=== PATIENT | female | born 1985 | race Caucasian/White ===

== ENCOUNTER 2017-05-21 | Emergency (ER) | payer OTHER, SELFPAY ==
--- NOTE | 2017-05-21 19:55 | EDPHYS ---
Physician Documentation [facility] Name: Julienne Lopez Age: 31 yrs Sex: Female : 1985 Arrival Date: 05/21/2017 Time: 19:34 Bed 18 Private MD: ED Physician Arben Morales HPI: 05/21 20:00 This 31 yrs old Female presents to ER via Ambulatory with complaints of tw4 Abdominal Pain. 20:00 The patient presents with abdominal pain in the periumbilical area. Onset: The tw4 symptoms/episode began/occurred 1 week(s) ago. The symptoms do not radiate. Associated signs and symptoms: none. The symptoms are described as sharp. Modifying factors: The symptoms are alleviated by supine position, the symptoms are aggravated by pressure, sitting up, picking up objects. Severity of pain: At its worst the pain was moderate in the emergency department the pain has improved. The patient has not experienced similar symptoms in the past. 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 - Social history:: Smoking status: Patient/guardian denies using tobacco, Patient/guardian denies using alcohol. ROS: 20:00 Constitutional: Negative for fever, chills, and weight loss, Cardiovascular: Negative tw4 for chest pain, palpitations, and edema, Respiratory: Negative for shortness of breath, cough, wheezing, and pleuritic chest pain, Back: Negative for injury and pain, MS/Extremity: Negative for injury and deformity, Skin: Negative for injury, rash, and discoloration. 20:00 Abdomen/GI: Positive for abdominal pain, Negative for nausea and vomiting, nausea, vomiting, and diarrhea, nausea, vomiting, diarrhea, constipation, abdominal cramps, abdominal distension, anorexia, dysphagia, hematemesis, black/tarry stool, rectal pain, rectal bleeding, bowel incontinence, flatulence. Exam: 20:00 Constitutional: This is a well developed, well nourished patient who is awake, alert, tw4 and in no acute distress. Head/Face: Normocephalic, atraumatic. Chest/axilla: Normal chest wall appearance and motion. Nontender with no deformity. No lesions are appreciated. Cardiovascular: Regular rate and rhythm with a normal S1 and S2. No gallops, murmurs, or rubs. Normal PMI, no JVD. No pulse deficits. Respiratory: Lungs have equal breath sounds bilaterally, clear to auscultation and percussion. No rales, rhonchi or wheezes noted. No increased work of breathing, no retractions or nasal flaring. 20:00 Abdomen/GI: Inspection: abdomen appears normal, Bowel sounds: normal, Hernia: noted in the umbilical area, incarceration, is not appreciated, tenderness, is not appreciated. Vital Signs: 19:38 BP 138 / 87; Pulse 82; Resp 18; Temp 97.6(O); Pulse Ox 100% on R/A; Weight 123.38 kg fc (R); Height 5 ft. 10 in. (177.80 cm) (R); Pain 5/10; 19:38 Body Mass Index 39.03 (123.38 kg, 177.80 cm) fc MDM: 19:48 Patient medically screened. tw4 20:00 Differential diagnosis: bowel obstruction, Mesenteric ischemia or infarction, tw4 non-specific abd pain, pancreatitis, Peritonitis. Data reviewed: vital signs, nurses notes. Counseling: I had a detailed discussion with the patient and/or guardian regarding: the historical points, exam findings, and any diagnostic results supporting the discharge/admit diagnosis. Special discussion: Based on the patient's Hx, exam, and Dx evaluation, there is no indication for emergent surgery or inpatient Tx. It is understood by the patient/guardian that if the Sx's persist or worsen they need to return immediately for re-evaluation. I discussed with the patient/guardian in detail that at this point there is no indication for admission to the hospital. It is understood, however, that if the symptoms persist or worsen the patient needs to return immediately for re-evaluation. Administered Medications: No medications were administered Disposition: 05/21/17 19:54 Discharged to Home. Impression: Umbilical hernia without obstruction or gangrene. - Condition is Stable. - Discharge Instructions: Hernia, [id number], Hernia Repair, Care After, [id number]. - Medication Reconciliation Form, Thank You Letter, Antibiotic Education, Prescription Opioid Use form. - Follow up: Private Physician; When: As needed; Reason: Recheck today's complaints, Continuance of care, Re-evaluation by your physician. Follow up: Jaime Bear MD; When: As needed; Reason: Recheck today's complaints, Continuance of care, Re-evaluation by your physician. - Problem is new. - Symptoms are unchanged. Signatures: Nia Lane RN RN fc Ortiz, Alex, RN RN ao Wadley, Terrence, MD MD tw4
--- NOTE | 2017-05-21 19:55 | ER ---
Nurse's Notes [facility] Name: Julienne Lopez Age: 31 yrs Sex: Female : 1985 Arrival Date: 05/21/2017 Time: 19:34 Bed 18 Private MD: Diagnosis: Umbilical hernia without obstruction or gangrene Presentation: 05/21 19:35 Presenting complaint: Patient states: that she is having pain to her hernia around her fc "belly button". Started yesterday, worse today. Denies any nausea or vomiting. Transition of care: patient was not received from another setting of care. Onset of symptoms was May 20, 2017. Care prior to arrival: None. 19:35 Method Of Arrival: Ambulatory fc 19:35 Acuity: LAMBERTO 3 Triage Assessment: 19:40 General: Appears comfortable, obese, Behavior is calm, cooperative, appropriate for fc age. Pain: Complains of pain in abdomen. EENT: No deficits noted. Neuro: Level of Consciousness is awake, alert, obeys commands, Oriented to person, place, time, situation. Cardiovascular: No deficits noted. Respiratory: No deficits noted. GI: Abdomen is obese, Bowel sounds present X 4 quads. Abd is soft X 4 quads Abdomen is tender to palpation in umbilical area Reports pain to belly button Patient currently denies diarrhea, nausea, vomiting. : No deficits noted. Derm: Skin is pink, warm \\T\\ dry. Musculoskeletal: Circulation, motion, and sensation intact. Capillary refill < 3 seconds, Range of motion: intact in all extremities. 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 - Social history:: Smoking status: Patient/guardian denies using tobacco, Patient/guardian denies using alcohol. Screenin:40 Abuse screen: Denies threats or abuse. Nutritional screening: No deficits noted. fc Tuberculosis screening: No symptoms or risk factors identified. Fall Risk None identified. Assessment: 19:41 Reassessment: No changes from previously documented assessment. Patient and/or family fc updated on plan of care and expected duration. Pain level reassessed. Patient is alert, oriented x 3, equal unlabored respirations, skin warm/dry/pink. see triage assessment. 19:50 Reassessment: Dr Morales in to see and examine pt. fc 20:05 Reassessment: DC instructions given to patient. Patient agree with the POC and to ao follow up with Dr Bear for hernia repair. Vital Signs: 19:38 BP 138 / 87; Pulse 82; Resp 18; Temp 97.6(O); Pulse Ox 100% on R/A; Weight 123.38 kg fc (R); Height 5 ft. 10 in. (177.80 cm) (R); Pain 5/10; 19:38 Body Mass Index 39.03 (123.38 kg, 177.80 cm) fc ED Course: 19:34 Patient arrived in ED. es 19:37 Triage completed. fc 19:37 Arm band placed on Patient placed in an exam room, on a stretcher. fc 19:40 Patient has correct armband on for positive identification. Bed in low position. Call fc light in reach. 19:40 No provider procedures requiring assistance completed. Patient did not have IV access fc during this emergency room visit. 19:48 Arben Morales MD is Attending Physician. tw4 19:53 Sahil Sigala, RN is Primary Nurse. ao 19:54 Jaime Bear MD is Referral Physician. tw4 Administered Medications: No medications were administered Outcome: 19:54 Discharge ordered by . tw4 20:04 Discharged to home ambulatory. ao 20:04 Condition: stable 20:04 Discharge instructions given to patient, Instructed on discharge instructions, follow up and referral plans. Demonstrated understanding of instructions, follow-up care, medications. 20:06 Patient left the ED. ao Signatures: Radha Reese Felicia, RN RN Sahil Sigala RN RN ao Arben Morales MD MD tw4 Corrections: (The following items were deleted from the chart) 19:58 19:38 123.38 kg Reported; Height 5 ft. 10 in. Reported; BMI: 39.0; Pain 5/10; fc fc
== END 2017-05-21 20:06 | disposition home or self-care (01) ==
CPT/HCPCS: 99281

== ENCOUNTER 2022-10-05 12:47 | Emergency (ER) | payer SELFPAY ==
--- OUTSIDE RECORDS SUMMARY | 2022-10-05 12:50 | XMS REPORT | Continuity of Care Document ---
:1985 Author Organization [facility] t Address [address] [facility] [address] [place] [address] Care Team Providers Name Role Phone PCP, PATIENT DOES NOT HAVE A Primary Care Physician Unavaila GLORIA An Attending Clinician Unavailable Gloria Andrews PA-C Attending Clinician Unknown, Attending Attending Clinician Unavailable Doctor Unassigned, [place] Attending Clinician Unavailable Charles SALAZAR Attending Clinician Unavailable Charles Martines Attending Clinician Zoe Hernández DO Attending Clinician Payers Payer Name Policy Type Policy Number Effective Date Expiration Date S ourman HIM BCBS BLUE [id number] 2022 ADVANTAGE O 00:00:00 Problems Condition Condition Condition Status Onset Resolution Last Treating Co mments Source Name Details Category Date Date Treatment Clinician Date Papanicola Papanicola Disease Active Overview : Univers ou smear ou smear 05-22 Formatt[place] ity of of cervix of cervix 00:00: g of this [place] with with 00 note Medical atypical atypical might be Bran ch squamous squamous different cells cells from the cannot cannot original. exclude exclude colpo high grade high grade 05/22/2013 squamous squamous intraepith intraepith elial elial lesion lesion (ASC-H) (ASC-H) Rubella Rubella Disease Active 2012-02 Univers immune immune 2-18 ity of 00:00: [place] 00 Medical Branch Morbid Morbid Disease Active 2012-02 Univers obesity obesity 2-11 ity of 00:00: [place] 00 [facility] Branch Allergies, Adverse Reactions, Alerts Allergy Allergy Status Severity Reaction(s) Onset Inactive Treating Comm ents Source Name Type Date Date Clinician Sulfa Propensi Active Hives 2012-02 Univers (Sulfona ty to 2-10 ity of mide adverse 00:00: [place] Antibiot reaction 00 Medica l ics) s Branch SULFA Drug Active Hives 2012-02 Univers (SULFONA Class 2-10 ity of MIDE 00:00: [place] ANTIBIOT 00 Medical ICS) Branch Sulfa Propensi Active Hives 2012-02 Univers (Sulfona ty to 2-10 ity of mide adverse 00:00: [place] Antibiot reaction 00 Medica l ics) s Branch Social History Social Habit Start Date Stop Date Quantity Comments Source Gender identity [facility]it y of [facility] Sexual orientation Univer sity of [facility] History of Social 2022-08-25 2022-08-25 Univers ity of function 00:00:00 00:00:00 [facility] Alcohol intake 2021-12-21 2021-12-21 Current University of 00:00:00 00:00:00 non-drinker of [facility] alcohol [place] (finding) Exposure to 2021-11-26 2021-12-06 Not sure [facility] SARS-CoV-2 (event) 00:00:00 16:43:00 [facility] Tobacco use and 2013-01-22 2013-01-22 Smokeless Universit y of exposure 00:00:00 00:00:00 tobacco non-user [facility] dical [place] Sex Assigned [birth year] Universit y of 00:00:00 00:00:00 [facility] Smoking Status Start Date Stop Date Source Never smoked tobacco [facility] Medications Ordered Filled Start Stop Current Ordering Indication Dosage Frequency Signature Comments Components Source Medication Medication Date Date Medication? Clinician (SIG) Name Name fluticasone Yes [id number] 2{spray Use 2 Univers propionate 7-13 } Sprays in ity of 50 00:00: each [place] mcg/actuati 00 nostril in Sc dical on nasal the Branch spray morning. cetirizine Yes [id number] 10mg Take 1 U nivers 10 mg 7-13 tablet by ity of tablet 00:00: mouth in [place] 00 the Medical morning. Branch amoxicillin 2022- Yes [id number] 500mg Take 1 Univers 500 mg 7-13 07-24 capsule by ity of capsule 00:00: 04:59 mouth in [place] 00 :00 the Medical morning Branch and 1 capsule in the evening. Do all this for 10 days. ondansetron 2021-02 No 4mg 4 mg, Univ ers (ZOFRAN-ODT 0-24 10-24 Oral, ity of ) 23:00: 21:59 ONCE, 1 [place] disintegrat 00 :00 dose, On Medi herb ing tablet [facility] 4 mg 12/06/21 at 1800, Routine ibuprofen 2021-02 No 600mg 600 mg, Uni vers (IBU) 0-24 10-24 Oral, ity of tablet 600 22:45: 22:47 ONCE, 1 [place] as mg 00 :00 dose, On Medical [facility] Branch 12/06/21 at 1745, SARIKA ibuprofen 2021-02 Yes [id number] 600mg Take 1 Univers 600 mg 0-24 tablet by ity of tablet 00:00: mouth [place] 00 every 6 Medical (six) Branch hours as needed for Pain (scale 4-6). benzonatate 2021-02 Yes [id number] 200mg Take 1 Univers 200 mg 0-24 capsule by ity of capsule 00:00: mouth 3 [place] 00 (three) Medical times Branch daily as needed for Cough for up to 20 doses. ondansetron 2021-02 Yes [id number] 4mg Take 1 Univers 4 mg 0-24 tablet by ity of disintegrat 00:00: mouth [place] ing tablet 00 every 8 Medica l (eight) Branch hours as needed for Nausea and Vomiting (N/V). ibuprofen 2021-02 Yes [id number] 600mg Take 1 Univers 600 mg 0-24 tablet by ity of tablet 00:00: mouth [place] 00 every 6 Medical (six) Branch hours as needed for Pain (scale 4-6). benzonatate 2021-02 Yes [id number] 200mg Take 1 Univers 200 mg 0-24 capsule by ity of capsule 00:00: mouth 3 [place] 00 (three) Medical times Branch daily as needed for Cough for up to 20 doses. ondansetron 2021-02 Yes [id number] 4mg Take 1 Univers 4 mg 0-24 tablet by ity of disintegrat 00:00: mouth [place] ing tablet 00 every 8 Medica l (eight) Branch hours as needed for Nausea and Vomiting (N/V). ibuprofen 2021-02 Yes [id number] 600mg Take 1 Univers 600 mg 0-24 tablet by ity of tablet 00:00: mouth [place] 00 every 6 Medical (six) Branch hours as needed for Pain (scale 4-6). benzonatate 2021-02 Yes [id number] 200mg Take 1 Univers 200 mg 0-24 capsule by ity of capsule 00:00: mouth 3 [place] 00 (three) Medical times Branch daily as needed for Cough for up to 20 doses. ondansetron 2021-02 Yes [id number] 4mg Take 1 Univers 4 mg 0-24 tablet by ity of disintegrat 00:00: mouth [place] ing tablet 00 every 8 Medica l (eight) Branch hours as needed for Nausea and Vomiting (N/V). HYDROcodone 2020- No 1{tbl} 1 tablet, Univers -acetaminop 3-07 03-07 Oral, ity of hen (NORCO 05:45: 04:47 ONCE, 1 [place] as 5) 5-325 mg 00 :00 dose, Sat Med ical tablet 1 04/18/20 at Branch tablet 2345, SARIKA ketoconazol 0 Yes [id number] Apply to Univers e 2 % cream 3-06 lesions ity o f 00:00: twice a [place] 00 day until Medical one week Branch after lesions resolved ketoconazol Yes [id number] Apply to Univers e 2 % cream 3-06 lesions ity o f 00:00: twice a [place] 00 day until Medical one week Branch after lesions resolved ketoconazol 2020-0 Yes [id number] Apply to Univers e 2 % cream 3-06 lesions ity o f 00:00: twice a [place] 00 day until Medical one week Branch after lesions resolved ketoconazol 2020-0 Yes [id number] Apply to Univers e 2 % cream 3-06 lesions ity o f 00:00: twice a [place] 00 day until Medical one week Branch after lesions resolved promethazin 2017-0 Yes 5mL Take 5 mL U nivers e-codeine 7-18 by mouth 4 ity of 6.25-10 00:00: (four) [place] mg/5 mL 00 times Medical syrup daily as Branch needed for Cough. sod Yes 1{bottl Use 1 Univers chlor-bicar 7-18 e} Bottle in ity of b-squeez 00:00: each [place] bottle 00 nostril 2 Medical (NEILMED (two) Branch SINUS RINSE times COMPLETE) daily. Use pkdv in hot shower 1 hour before bedtime loratadine 2017-0 Yes 10mg Take 1 Unive rs 10 mg 7-18 tablet by ity of tablet 00:00: mouth [place] 00 daily. Medical Branch promethazin 2017-0 Yes 5mL Take 5 mL U nivers e-codeine 7-18 by mouth 4 ity of 6.25-10 00:00: (four) [place] mg/5 mL 00 times Medical syrup daily as Branch needed for Cough. sod 2017- Yes 1{bottl Use 1 Univers chlor-bicar 7-18 e} Bottle in ity of b-squeez 00:00: each [place] bottle 00 nostril 2 Medical (NEILMED (two) Branch SINUS RINSE times COMPLETE) daily. Use pkdv in hot shower 1 hour before bedtime loratadine 2017-0 Yes 10mg Take 1 Unive rs 10 mg 7-18 tablet by ity of tablet 00:00: mouth [place] 00 daily. Medical Branch promethazin 2017-0 Yes 5mL Take 5 mL U nivers e-codeine 7-18 by mouth 4 ity of 6.25-10 00:00: (four) [place] mg/5 mL 00 times Medical syrup daily as Branch needed for Cough. sod 0 Yes 1{bottl Use 1 Univers chlor-bicar 7-18 e} Bottle in ity of b-squeez 00:00: each [place] bottle 00 nostril 2 Medical (NEILMED (two) Branch SINUS RINSE times COMPLETE) daily. Use pkdv in hot shower 1 hour before bedtime loratadine 2017-0 Yes 10mg Take 1 Unive rs 10 mg 7-18 tablet by ity of tablet 00:00: mouth [place] 00 daily. Medical Branch promethazin 2017-0 Yes 5mL Take 5 mL U nivers e-codeine 7-18 by mouth 4 ity of 6.25-10 00:00: (four) [place] mg/5 mL 00 times Medical syrup daily as Branch needed for Cough. sod Yes 1{bottl Use 1 Univers chlor-bicar 7-18 e} Bottle in ity of b-squeez 00:00: each [place] bottle 00 nostril 2 Medical (NEILMED (two) Branch SINUS RINSE times COMPLETE) daily. Use pkdv in hot shower 1 hour before bedtime loratadine 2017- Yes 10mg Take 1 Unive rs 10 mg 7-18 tablet by ity of tablet 00:00: mouth [place] 00 daily. Medical Branch TYLENOL-COD 2016-02 Yes 2{tbl} Take 2 Un heri EINE #3 0-17 tablets by ity of 300-30 mg 00:00: mouth [place] tablet 00 every 4 Medical (four) Branch hours as needed for Pain (scale 4-6). TYLENOL-COD 2016-02 Yes 2{tbl} Take 2 Un heri EINE #3 0-17 tablets by ity of 300-30 mg 00:00: mouth [place] tablet 00 every 4 Medical (four) Branch hours as needed for Pain (scale 4-6). TYLENOL-COD 2016-02 Yes 2{tbl} Take 2 Un heri EINE #3 0-17 tablets by ity of 300-30 mg 00:00: mouth [place] tablet 00 every 4 Medical (four) Branch hours as needed for Pain (scale 4-6). TYLENOL-COD 2016-02 Yes 2{tbl} Take 2 Un heri EINE #3 0-17 tablets by ity of 300-30 mg 00:00: mouth [place] tablet 00 every 4 Medical (four) Branch hours as needed for Pain (scale 4-6). proMETHazin 2017-0 Yes 25mg Take 1 Univ ers e 25 mg 4-27 tablet by ity of tablet 00:00: mouth [place] 00 every 6 Medical (six) Branch hours as needed for Nausea and Vomiting (N/V). proMETHazin 2017-0 Yes 25mg Take 1 Univ ers e 25 mg 4-27 tablet by ity of tablet 00:00: mouth [place] 00 every 6 Medical (six) Branch hours as needed for Nausea and Vomiting (N/V). proMETHazin 2017-0 Yes 25mg Take 1 Univ ers e 25 mg 4-27 tablet by ity of tablet 00:00: mouth [place] 00 every 6 Medical (six) Branch hours as needed for Nausea and Vomiting (N/V). proMETHazin 2017-0 Yes 25mg Take 1 Univ ers e 25 mg 4-27 tablet by ity of tablet 00:00: mouth [place] 00 every 6 Medical (six) Branch hours as needed for Nausea and Vomiting (N/V). ORTHO 2012-02 Yes [id number] 1{tbl} Take 1 Tab Univers TRI-CYCLEN- 2-11 by mouth ity of 28 (ORTHO 00:00: daily. [place] TRI-CYCLEN, [facility] ,) Branch 0.18/0.215/ 0.25 mg-35 mcg (28) tablet ORTHO 2012-02 Yes [id number] 1{tbl} Take 1 Tab Univers TRI-CYCLEN- 2-11 by mouth ity of 28 (ORTHO 00:00: daily. [place] TRI-CYCLEN, [facility] ,) Branch 0.18/0.215/ 0.25 mg-35 mcg (28) tablet ORTHO 2012-02 Yes [id number] 1{tbl} Take 1 Tab Univers TRI-CYCLEN- 2-11 by mouth ity of 28 (ORTHO 00:00: daily. [place] TRI-CYCLEN, [facility] ,) Branch 0.18/0.215/ 0.25 mg-35 mcg (28) tablet ORTHO 2012-02 Yes [id number] 1{tbl} Take 1 Tab Univers TRI-CYCLEN- 2-11 by mouth ity of 28 (ORTHO 00:00: daily. [place] TRI-CYCLEN, [facility] ,) Branch 0.18/0.215/ 0.25 mg-35 mcg (28) tablet Immunizations Ordered Filled Immunization Date Status Comments [facility] e Immunization Name Name TDAP 2013-01-23 Completed University of 00:00:00 [facility] TDAP 2013-01-23 Completed University of 00:00:00 [facility] TDAP 2013-01-23 Completed University of 00:00:00 [facility] TDAP 2013-01-23 Completed University of 00:00:00 [facility] TD, NOS 1998-02-13 Completed University 00:00:00 [facility] TD, NOS 1998-02-13 Completed University of 00:00:00 [place] [facility] Td 1998-02-13 Completed University of 00:00:00 [place] [facility] Td 1998-02-13 Completed University of 00:00:00 [facility] Vital Signs Vital Name Observation Time Observation Value Comments Source Systolic blood 2022-08-25 19:13:00 161 mm[Hg] Univer sity of pressure [place] [facility] Diastolic blood 2022-08-25 19:13:00 95 mm[Hg] Unive rsity of pressure [place] [facility] Heart rate 2022-08-25 19:11:00 111 /min Universi ty of [place] [facility] Body temperature 2022-08-25 19:11:00 36.67 Patsy Univ ersity of [place] [facility] Respiratory rate 2022-08-25 19:11:00 16 /min Univ ersity of [place] [facility] Body height 2022-08-25 19:11:00 177.8 cm Universi ty of [place] [facility] Body weight 2022-08-25 19:11:00 136.561 kg Universi ty of [place] [facility] BMI 2022-08-25 19:11:00 43.20 kg/m2 Universi ty of [place] [facility] Oxygen saturation in 2022-08-25 19:11:00 97 /min University of Arterial blood by [place] [facility] Pulse oximetry Branch Systolic blood 2021-12-07 00:03:37 133 mm[Hg] Univer sity of pressure [place] [facility] Diastolic blood 2021-12-07 00:03:37 91 mm[Hg] Unive rsity of pressure [place] [facility] Heart rate 2021-12-07 00:03:37 98 /min Universi ty of [place] [facility] Body temperature 2021-12-07 00:03:37 37.33 Patsy Univ ersity of [place] [facility] Respiratory rate 2021-12-07 00:03:37 18 /min Univ ersity of [place] [facility] Oxygen saturation in 2021-12-07 00:03:37 96 /min University of Arterial blood by [facility] Pulse oximetry Branch Body height 2021-12-06 21:44:00 177.8 cm Universi ty of [place] [facility] Body weight 2021-12-06 21:44:00 125.193 kg Universi ty of [place] [facility] BMI 2021-12-06 21:44:00 39.60 kg/m2 Universi ty of [place] [facility] Systolic blood 2020-04-19 03:55:00 156 mm[Hg] Univer sity of pressure [facility] Diastolic blood 2020-04-19 03:55:00 107 mm[Hg] Unive rsity of pressure [facility] Heart rate 2020-04-19 03:55:00 101 /min [facility] Body temperature 2020-04-19 03:55:00 37.22 Patsy [facility] Respiratory rate 2020-04-19 03:55:00 18 /min [facility] Body weight 2020-04-19 03:55:00 145.151 kg [facility] BMI 2020-04-19 03:55:00 45.92 kg/m2 [facility] Oxygen saturation in 2020-04-19 03:55:00 98 /min [facility] Arterial blood by [facility] Pulse oximetry Branch Procedures Procedure Date / Time Performed Performing Clinician Sourc e POCT MOLECULAR STREP 2022-08-25 19:16:00 Unknown, Attending [facility] ASSIGNMENT OF BENEFITS 2022-08-25 19:06:56 Doctor Unassigned, No [facility] Name [facility] RAPID INFLUENZA A/B 2021-12-06 22:02:00 Charles Salazar [facility] COVID-19 (ID NOW RAPID 2021-12-06 22:02:00 Charles Salazar [facility] TESTING) Medical Branch CONSENT/REFUSAL FOR 2021-12-06 21:31:25 [facility] Medical Branch TREATMENT NOTICE OF PRIVACY 2020-04-19 03:52:07 Doctor Unassigned, No [facility] Name Medical Branch CONSENT/REFUSAL FOR 2020-04-19 03:48:21 Doctor Unassigned, [facility] [place] [place] [facility] AND Name Medical Branch TREATMENT Encounters Start End Encounter Admission Attending Care Care Encounter Source Date/Time Date/Time Type Type Clinicians Facility Department ID 2020-12-13 Emergency [facility] [id number] Univers 03:49:35 ity [facility] 2022-08-25 2022-08-25 Outpatient Zhanna ANDREWS [facility] [id number] Univers 14:00:00 14:26:26 GLORIA ity of [facility] 2022-08-25 2022-08-25 Urgent Gloria Andrews [facility] [id number] Univers 14:00:00 14:26:26 Care Unknown, Attending HEALTH [id number] ity of [place] [id number] Fausto as MICHELET?BLEA [id number] Sc dical [address] MEDICAL OFFICE BUILDING 2022-08-25 2022-08-25 Orders Doctor TRACY [id number] Univers 00:00:00 00:00:00 Only Unassigned, LEIGHANN [id number] ity of [place] [facility] [id number] [place] as [id number] [address] 2021-12-06 2021-12-06 Emergency X Charles SALAZAR [facility] ERT [id number] Univers 16:46:00 19:07:00 ity of [facility] 2021-12-06 2021-12-06 Emergency Charles Salazar [facility] [id number] Univers 16:46:00 19:07:00 [place] GODFREY [id number] i ty of [facility] [id number] [place] [id number] [address] 2020-04-18 2020-04-18 [facility] [id number] Univers 22:17:00 22:50:00 Zoe Godfrey [id number] ity of [place] [id number] [place] [id number] [address] Results Test Description Test Time Test Comments Results Result Comments Source POCT MOLECULAR STREP 2022-08-25 19:20:35 Test Item Value Reference Range Interpretation Comme nts POCT Molecular Strep (test code = 00578-8) Positive Negative A Lab Interpretation (test code = 87609-9) Abnormal [facility]
[2022-10-05 13:22] LABS: Absolute Lymphocytes (CBC) 2.6 K/uL (0.7-4.9); Hematocrit 38.5 % (36.0-45.0); Lymphocytes % 31.5 % (15.3-44.8); Platelets 314 thou/uL (152-406); RBC Red Blood Cell Count 4.64 M/uL (3.86-4.86)
[2022-10-05 13:36] LABS: Potassium 3.5 mEq/L (3.5-5.1)
[2022-10-05] MEDS ORDERED: CLINDAMYCIN 600MG/D5W 50 ML IV ONE (14:12)
[2022-10-05] MEDS ORDERED: PIPERACIL/TAZO 3.375 GM VIAL IV ONE (14:13)
[2022-10-05] MEDS ORDERED: NA CHLORIDE 0.9% 100 ML ONE (14:13)
--- NOTE | 2022-10-05 14:18 | RAD REPORT ---
EXAM DESCRIPTION: CT - CTFB CLINICAL HISTORY: Facial pain;Swelling Left-sided facial swelling. COMPARISON: No comparisons TECHNIQUE: Axial 2 mm thick images of the face were obtained with sagittal and coronal reconstructio n images. All CT scans are performed using dose optimization technique as appropriate and may include automated exposure control or mA/KV adjustment according to patient size. FINDINGS: No acute facial bone fracture is seen.The mandible is intact. There are multiple large dental caries present. There is soft tissue inflammation along the left aspe ct of the face. No discrete abscess seen. The globes and orbital contents are grossly unremarkable.Mild mucosal thickening left maxillary antru m. The paranasal sinuses are otherwise clear. Mastoid air cells are clear. IMPRESSION: Negative for facial bone fracture. Multiple significant dental caries/erosions without abscess.
--- NOTE | 2022-10-05 15:08 | ER ---
Nurse's Notes [facility] Name: Julienne Lopez Age: 36 yrs Sex: Female : 1985 Arrival Date: 10/05/2022 Time: 12:47 Bed 17 Private MD: Diagnosis: Erosion of teeth;Dental Infection Presentation: 10/05 12:56 Chief complaint: Patient states: has some broken teeth on upper and lower left side and iw has been on antibiotics but she still has swelling, they told her to come get IV antibiotics. Coronavirus screen: At this time, the client does not indicate any symptoms associated with coronavirus-19. Ebola Screen: Patient negative for fever greater than or equal to 101.5 degrees Fahrenheit, and additional compatible Ebola Virus Disease symptoms. Initial Sepsis Screen: Does the patient meet any 2 criteria? No. Patient's initial sepsis screen is negative. Does the patient have a suspected source of infection? No. Patient's initial sepsis screen is negative. Risk Assessment: Do you want to hurt yourself or someone else? Patient reports no desire to harm self or others. Onset of symptoms. 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 - Social history:: Smoking status: Patient denies any tobacco usage or history of. Screenin:07 [facility] ED Fall Risk Assessment (Adult) Score/Fall Risk Level 0 - 2 = Low Risk. Abuse me1 screen: Denies threats or abuse. Nutritional screening: No deficits noted. Tuberculosis screening: No symptoms or risk factors identified. Assessment: 13:07 General: Appears uncomfortable, obese, well groomed, well developed, Behavior is calm, me1 cooperative, appropriate for age. General: Reports having some broken teeth on the left side of her mouth. Went to dentist on Monday and was started on amoxicillin but her face and neck started to have some swelling and the dentist asked her to come to the ER for IV antibiotics. Pain: Complains of pain in left mouth/teeth Pain does not radiate. Pain currently is 3 out of 10 on a pain scale. Quality of pain is described as tender. Neuro: Level of Consciousness is awake, alert, obeys commands, Oriented to person, place, time, situation, Appropriate for age. Cardiovascular: Capillary refill < 3 seconds Patient's skin is warm and dry. Respiratory: Airway is patent Respiratory effort is even, unlabored, Respiratory pattern is regular, symmetrical. EENT: Reports edema to left face/neck after going to dentist on Monday for broken teeth and being started on amoxicillin. Referred to ER by dentist for IV antibiotics. . 15:17 Reassessment: Patient appears in no apparent distress at this time. Patient and/or ph family updated on plan of care and expected duration. Pain level reassessed. Patient is alert, oriented x 3, equal unlabored respirations, skin warm/dry/pink. D/C pending completion of IV medications. Vital Signs: 12:56 Pulse 82; Resp 16; Temp 98.1; Pulse Ox 99% on R/A; Weight 140.61 kg; Height 5 ft. 10 iw in. ; Pain 7/10; 14:00 BP 127 / 80; Pulse 66; Resp 16; Pulse Ox 96% on R/A; ph 15:00 BP 133 / 88; Pulse 68; Resp 16; Pulse Ox 99% ; ph 15:58 BP 132 / 73; Pulse 58; Resp 17; Pulse Ox 97% on R/A; ph 12:56 Body Mass Index 44.48 (140.61 kg, 177.8 cm) iw 12:56 Pain Scale: Adult iw ED Course: 12:49 Patient arrived in ED. im 12:51 Janice Foster PA-C is PHCP. sb4 12:51 Sai Vuong MD is Attending Physician. sb4 12:57 Triage completed. iw 12:58 Arm band placed on. iw 13:07 Patient has correct armband on for positive identification. Bed in low position. Call me1 light in reach. Side rails up X 1. Provided Education on: POC. Verbalized understanding. . 13:07 No provider procedures requiring assistance completed. me1 13:14 Lactate w/ 2H reflex if indic. Sent. bc6 13:14 BMP Sent. bc6 13:14 CBC with Diff Sent. bc6 13:14 Inserted saline lock: 22 gauge in right antecubital area, using aseptic technique. bc6 Blood collected. 13:30 Karishma Cerrato, RN is Primary Nurse. ph 13:37 Facial Bones W/O Con CT In Process Unspecified. EDMS 15:58 IV discontinued, intact, bleeding controlled, No redness/swelling at site. Pressure ph dressing applied. Administered Medications: 14:03 Drug: Clindamycin IVPB 600 mg Route: IVPB; Infused Over: 30 mins; Site: right me1 antecubital; 14:48 Follow up: IV Status: Completed infusion me1 14:48 Drug: Piperacillin-Tazobactam IVPB 3.375 grams Route: IVPB; Infused Over: 60 mins; me1 Site: right antecubital; 15:53 Follow up: IV Status: Completed infusion ph Medication: 13:07 VIS not applicable for this client. me1 Outcome: 15:07 Discharge ordered by . caryl 16:07 Discharged to home ambulatory. ph 16:07 Condition: stable 16:07 Discharge instructions given to patient, Instructed on discharge instructions, follow up and referral plans. medication usage, Demonstrated understanding of instructions, follow-up care, medications, Prescriptions given X 1. 16:07 Patient left the ED. ph Signatures: Dispatcher [employer] EDMS Louise Hernández, OSMEL BOLIVAR Karishma Cerrato, RN RN Janice Foster PA-Jake PA-Jake sb4 Lianet Adams bc6 Cadence Martinez Michelle, RN RN me1 Corrections: (The following items were deleted from the chart) 15:58 15:00 BP 132 / 73; Pulse 58bpm; Resp 17bpm; Pulse Ox 97% RA; ph ph
--- NOTE | 2022-10-05 15:08 | EDPHYS ---
Physician Documentation [facility] Name: Julienne Lopez Age: 36 yrs Sex: Female : 1985 Arrival Date: 10/05/2022 Time: 12:47 Bed 17 Private MD: ED Physician Sai Vuong HPI: 10/05 13:08 This 36 yrs old Female presents to ER via Ambulatory with complaints of Facial Swelling sb4 - left, Toothache. 13:08 Onset: The symptoms/episode began/occurred 3 day(s) ago. Associated signs and symptoms: sb4 Pertinent negatives: fever, vomiting. Modifying factors: The patient symptoms are alleviated by pain medication, the patient symptoms are aggravated by eating food. The patient has not experienced similar symptoms in the past. The patient has not recently seen a physician. patient has known cracked teeth. pain started on Monday. she went to dentist on Monday and was started on amoxicillin. pain and swelling has gotten worse. she called dentist today and she was told to come to the ER for IV antibiotics. 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 - Social history:: Smoking status: Patient denies any tobacco usage or history of. ROS: 13:08 Constitutional: Negative for fever, chills, and weight loss. sb4 13:08 ENT: Positive for Teeth pain 13:08 All other systems are negative. Exam: 13:08 Constitutional: This is a well developed, well nourished patient who is awake, alert, sb4 and in no acute distress. Head/Face: Normocephalic, atraumatic. 13:08 ENT: Dental exam: fractured teeth are noted, specifically the lower left second molar (#18) and lower left first molar (#19), pain. 13:57 Head/face: Noted is swelling, that is mild, of the left cheek. sb4 Vital Signs: 12:56 Pulse 82; Resp 16; Temp 98.1; Pulse Ox 99% on R/A; Weight 140.61 kg; Height 5 ft. 10 iw in. ; Pain 7/10; 14:00 BP 127 / 80; Pulse 66; Resp 16; Pulse Ox 96% on R/A; ph 15:00 BP 133 / 88; Pulse 68; Resp 16; Pulse Ox 99% ; ph 15:58 BP 132 / 73; Pulse 58; Resp 17; Pulse Ox 97% on R/A; ph 12:56 Body Mass Index 44.48 (140.61 kg, 177.8 cm) iw 12:56 Pain Scale: Adult iw MDM: 12:51 Patient medically screened. sb4 13:08 Differential diagnosis: facial abscess, sepsis, dental carries. sb4 13:16 ED course: has an appt on November 16 to have effected teeth extracted. sb4 15:06 Data reviewed: vital signs, nurses notes, lab test result(s), radiologic studies, CT sb4 scan. Care significantly affected by the following chronic conditions: Hypertension. Counseling: I had a detailed discussion with the patient and/or guardian regarding the historical points, exam findings, and any diagnostic results supporting the discharge/admit diagnosis, lab results, radiology results, the need for outpatient follow up, a dentist. 10/05 13:06 Order name: CBC with Diff; Complete Time: 13:24 sb4 10/05 13:06 Order name: BMP; Complete Time: 13:46 sb4 10/05 13:06 Order name: Lactate w/ 2H reflex if indic.; Complete Time: 13:46 sb4 10/05 13:06 Order name: Facial Bones W/O Con CT; Complete Time: 14:25 sb4 10/05 13:06 Order name: IV Start; Complete Time: 13:14 sb4 Administered Medications: 14:03 Drug: Clindamycin IVPB 600 mg Route: IVPB; Infused Over: 30 mins; Site: right me1 antecubital; 14:48 Follow up: IV Status: Completed infusion me1 14:48 Drug: Piperacillin-Tazobactam IVPB 3.375 grams Route: IVPB; Infused Over: 60 mins; me1 Site: right antecubital; 15:53 Follow up: IV Status: Completed infusion ph Disposition Summary: 10/05/22 15:07 Discharge Ordered Location: Home sb4 Problem: new sb4 Symptoms: have improved sb4 Condition: Stable sb4 Diagnosis - Erosion of teeth sb4 - Dental Infection sb4 Followup: sb4 - With: Private Physician - When: 1 - 2 days - Reason: Recheck today's complaints, Continuance of care, Re-evaluation by your physician Discharge Instructions: - Discharge Summary Sheet sb4 Forms: - Medication Reconciliation Form sb4 - Thank You Letter sb4 - Antibiotic Education sb4 - Prescription Opioid Use sb4 - Patient Portal Instructions sb4 - Leadership Thank You Letter sb4 Prescriptions: - Clindamycin HCl 300 mg Oral Capsule - take 1 capsule by ORAL route every 6 hours for 10 days; 40 capsule; Refills: 0, sb4 Product Selection Permitted Signatures: Dispatcher [employer] Louise Anderson, RN RN iw Janice Foster PA-C PA-C sb4 Kay Oden, RN RN me1 Karishma Cerrato RN ph
[2022-10-05 16:18] VITALS: TEMP 98.1
[2022-10-05 16:22] VITALS: BP 132/73; O2SAT 97
== END 2022-10-05 16:07 | disposition home or self-care (01) ==
LOC: ER 12:47
DX: K03.2 Erosion of teeth (principal); K04.7 Periapical abscess without sinus
CPT/HCPCS: 36415; 70486; 76377; 80048; 83605; 85025; J2543